=== PATIENT | female | born 1935 | race Native Hawaiian/Other Pacific Islander ===

== ENCOUNTER 2018-08-08 12:17 | Emergency (ER) | payer OTHER ==
[~2018-08-08] VITALS: Ht 162.6 cm; Wt 89.4 kg
[2018-08-08 12:33] VITALS: BP 106/54; TEMP 97.2
[2018-08-08] MEDS ORDERED: PRINIVIL10 MG PO (12:45)
[2018-08-08] MEDS ORDERED: CARV6.25 PO (12:45)
[2018-08-08] MEDS ORDERED: LEVO0.08 PO (12:46)
[2018-08-08] MEDS ORDERED: SIMV20TA2 PO (12:47)
[2018-08-08] MEDS ORDERED: DEMADEX20 MG PO (12:48)
[2018-08-08] MEDS ORDERED: WARF1TAB7 PO (12:50)
[2018-08-08] MEDS ORDERED: WARF2TAB7 PO (12:50)
[2018-08-08] MEDS ORDERED: DIGO0.1230 PO (12:51)
[2018-08-08 14:48] LABS: POTASSIUM 3.7 mmol/L (3.6-5.2)
[2018-08-08 14:49] LABS: PLATELET COUNT 273 K/uL (152-353)
== END 2018-08-08 15:25 | disposition home or self-care (01) ==
LOC: ED 12:17
PROVIDERS: Emergency Medicine
DX: J45.909 Unspecified asthma, uncomplicated (principal)
CPT/HCPCS: 36415; 80053; 81000; 85027; 94664; 99283